=== PATIENT | male | born 1965 | race Caucasian/White ===

== ENCOUNTER 2016-12-13 08:53 | Day surgery (SDC) | payer BC ==
[~2016-12-13] VITALS: Ht 185.4 cm; Wt 100.0 kg
[2016-12-13] MEDS ORDERED: TOPROL XL 50MG50 MG PO (09:10)
[2016-12-13] MEDS ORDERED: ALTACE 10MG TAB10 MG PO (09:11)
[2016-12-13] MEDS ORDERED: BETAPACE AF80 MG/TA1 PO (09:11)
[2016-12-13] MEDS ORDERED: CRESTOR 10MG10 MG PO (09:12)
[2016-12-13] MEDS ORDERED: LASIX 40MG TABL40 MG PO (09:12)
[2016-12-13] MEDS ORDERED: FLOVENT DI50 MCG/Act IH (09:13)
[2016-12-13] MEDS ORDERED: KLOR-CON 1010 MEQ PO (09:13)
[2016-12-13] MEDS ORDERED: ASPIRIN 32325 MG/TAB PO (09:13)
[2016-12-13] MEDS ORDERED: VITAMIND3 5000 PO (09:14)
[2016-12-13 09:22] VITALS: BP 127/77; PULSE 59; TEMP 97.6
[2016-12-13 09:59] LABS: HEMATOCRIT 39.5 % (42.0-52.0); HEMOGLOBIN 12.6 g/dl (13.5-18.0); MEAN CELL VOLUME 93 fl (80.0-100.0); MEAN CORPUSCULAR HEMOGLOBIN 30 pg (27.0-31.0); MEAN CORPUSCULAR HGB CONC 32 g/dl (33.0-37.0); MEAN PLATELET VOLUME 10.5 fl (7.4-10.4); PLATELET COUNT 195 K/mm3 (130-400); RED BLOOD COUNT 4.23 M/mm3 (4.20-5.60); REDCELL DISTRIBUTION WIDTH-CV 12.9 % (11.5-14.5); WHITE BLOOD COUNT 4.8 K/mm3 (4.8-10.8)
[2016-12-13 10:09] LABS: CALCIUM 9.1 mg/dL (8.4-10.2); CREATININE, serum 0.86 mg/dL (0.66-1.25); INR 1.1 (0.8-3.0); POTASSIUM 4.4 mmol/L (3.4-5.0); PROTHROMBIN TIME 11.9 SECONDS (9.7-12.8)
[2016-12-13 12:19] VITALS: BP 144/83; PULSE 65
[2016-12-13 13:00] VITALS: BP 113/73; PULSE 60
[2016-12-13 13:15] VITALS: BP 121/73; PULSE 60
[2016-12-13 13:45] VITALS: BP 121/79; PULSE 60
[2016-12-13 14:15] VITALS: BP 127/77; PULSE 62
[2016-12-13] MEDS ORDERED: CEPHALEXIN500 M1 PO (14:33)
== END 2016-12-13 15:23 | disposition home or self-care (01) ==
LOC: EUO 08:53 → COL.RAD 09:00 → EUO 09:00
PROVIDERS: Internal Medicine Cardiovascular Disease
DX: Z45.02 Encounter for adjustment and management of automatic implantable cardiac defibrillator (principal); I42.8 Other cardiomyopathies; I50.9 Heart failure, unspecified; I25.10 Atherosclerotic heart disease of native coronary artery without angina pectoris; E78.2 Mixed hyperlipidemia
CPT/HCPCS: C1882; J0690; J2250; J3010; J7030